=== PATIENT | female | born 1985 | race Caucasian/White ===

== ENCOUNTER 2016-11-07 06:51 | Day surgery (SDC) | payer MEDICAID ==
[~2016-11-07 06:51] MED LIST: Dextrose 5%-0.45% NaCl 1,000 ML IV SCH; Midazolam 1 MG/ML 2 ML SDV ONE; Sodium Chloride 0.9% 10 ML Syringe FLUSH PRN; fentaNYL 100 MCG/2 ML SDV ONE
[2016-11-07] MEDS ORDERED: fentaNYL 100 MCG/2 ML SDV IV ONE ×2 (07:50→17:05)
[2016-11-07] MEDS ORDERED: Midazolam 1 MG/ML 2 ML SDV IV ONE ×3 (07:51→17:05)
--- NOTE | 2016-11-07 08:26 | OR ---
DATE: 11/07/2016 PROCEDURE: Esophagogastroduodenoscopy and multiple pinch biopsies. INSTRUMENT USED: GIF-H180 Olympus video panendoscope. PREMEDICATIONS: No oral topical anesthesia used. Fentanyl 100 mcg intravenous, Versed 2 mg intravenous. Nasal O2 cannula. The procedure was done under pulse oximetry, BP recording, and monitoring engineer. INDICATION: The patient with longstanding heartburn, upper abdominal pain, unexplained and not responsive to medical measures. Esophagogastroduodenoscopy is performed for detection of any active erosive lesions, Greene esophagus and/or malignancy also under consideration, H. pylori status to be determined, endoscopic hemostasis therapy if needed. DESCRIPTION OF PROCEDURE: The scope was passed with ease. Adequate visualization of the esophagus was made from proximal to distal areas. No upper esophageal lesions identified. No distal esophageal stricture. No uphill or downhill esophageal varices. No Kalina-Bang tear. No evidence of erosive esophagitis by Bulloch criteria. No esophageal polyp or tumor mass identified. Z-line was seen at around 40 cm distal to the oral verge, configuration consistent with grade 1 by ZAP classification. No esophageal polyp or tumor mass identified. No proximal gastric varices noted. Gastric fundus examination by retroflexion showed no polypoid lesions. No gastric ulcer, malignant mass, or vascular ectasia identified. Duodenal bulb showed no ulcer. Visualized second part of the duodenum was unremarkable. Multiple pinch biopsies were taken from the gastric antrum and proximal body and sent for PyloriTek test for H. pylori, and if negative in an hour, tissue is to be sent for histopathology. No bleeding was noted from any of the visualized areas at the completion of the examination. Photographs were taken of the duodenal bulb, gastric antrum, fundus, and distal esophagus. IMPRESSION: Normal study. The patient tolerated the procedure well. [facility] /[id number]
[2016-11-07 10:46] VITALS: BP 98/80
== END 2016-11-07 10:30 | disposition home or self-care (01) ==
LOC: DL.ENDO 06:51
PROVIDERS: ATTEND Internal Medicine Gastroenterology
DX: K31.9 Disease of stomach and duodenum, unspecified (principal); E66.9 Obesity, unspecified; F41.1 Generalized anxiety disorder; Z88.8 Allergy status to other drugs, medicaments and biological substances; Z91.09 Other allergy status, other than to drugs and biological substances; F32.9 Major depressive disorder, single episode, unspecified; K21.9 Gastro-esophageal reflux disease without esophagitis; Z98.890 Other specified postprocedural states; Z79.899 Other long term (current) drug therapy
CPT/HCPCS: 43239; 87077; J2250; J3010; J7042

== ENCOUNTER 2016-11-09 06:21 | Day surgery (SDC) | payer MEDICAID ==
[2016-11-09] MEDS ORDERED: fentaNYL 100 MCG/2 ML SDV IV ONE ×5 (07:11→16:43)
[2016-11-09] MEDS ORDERED: Midazolam 1 MG/ML 2 ML SDV IV ONE ×7 (07:12→16:43)
[2016-11-09 09:36] VITALS: BP 101/65
--- NOTE | 2016-11-09 11:11 | OR ---
DATE: 11/09/2016 PROCEDURE: Total colonoscopy. INSTRUMENT USED: CF-H180AL Olympus video colonoscope. PREMEDICATIONS: Fentanyl 150 mcg intravenous, Versed 4 mg intravenous. Nasal O2 cannula. The procedure was done under pulse oximetry, BP recording, and registered nurse cardiac. INDICATION: The patient with rectal bleeding and abdominal pain, unexplained and not responsive to medical measures. Colonoscopic examination is done for detection of any polypoid lesions and removal, endoscopic hemostasis therapy if needed. DESCRIPTION OF PROCEDURE: Initial rectal exam showed external hemorrhoidal tags. Rigid anoscopy was unremarkable. The colonoscope was passed with ease up to the ileocecal area, photographs were taken of the normal-appearing cecum, identified by landmarks of appendiceal orifice and double-bulged ileocecal folds. No bleeding was noted from any of the visualized areas at the commencement of the examination. Few diverticula openings were noted. No stricture. No vascular ectasia. No large isolated ulcerations seen. No evidence of diffuse inflammatory bowel disease in the form of friability, contact bleeding, or ulcerations. No polyp or tumor mass identified. Probing the proximal sides of folds and flexures, using adequate distention and clearing up the stool material, withdrawal of the scope was made, cecum to rectum time over 6 minutes. No bleeding was noted from any of the visualized areas at the completion of examination. IMPRESSION: 1. External hemorrhoids. 2. Diverticulosis. The patient tolerated the procedure well. [facility] /[id number]
== END 2016-11-09 09:37 | disposition home or self-care (01) ==
LOC: DL.ENDO 06:21
PROVIDERS: ATTEND Internal Medicine Gastroenterology
DX: K57.30 Diverticulosis of large intestine without perforation or abscess without bleeding (principal); K64.4 Residual hemorrhoidal skin tags; Z88.8 Allergy status to other drugs, medicaments and biological substances; Z91.09 Other allergy status, other than to drugs and biological substances; E66.9 Obesity, unspecified; F41.1 Generalized anxiety disorder; F32.9 Major depressive disorder, single episode, unspecified; Z79.899 Other long term (current) drug therapy
CPT/HCPCS: 45378; J2250; J3010; J7042

== ENCOUNTER 2016-11-26 15:21 | Emergency (ER) | payer MEDICAID ==
[2016-11-26 15:37] VITALS: BP 125/82
--- NOTE | 2016-11-29 10:51 | EKG ---
11/26/2016- KAILA OLIVEIRA - EKG per my reading shows sinus rhythm at the rate of 77, inverted T wave in inferior leads. [facility] /[id number]
== END 2016-11-26 16:00 | disposition left against medical advice (07) ==
LOC: DL.ED 15:21
DX: Z53.21 Procedure and treatment not carried out due to patient leaving prior to being seen by health care provider (principal)
CPT/HCPCS: 93005; 99284

== ENCOUNTER 2017-04-28 11:50 | Emergency (ER) | payer MEDICAID ==
[2017-04-28 11:56] VITALS: BP 123/77
--- NOTE | 2017-04-28 12:12 | EDM.PDOC ---
ED HPI GENERAL MEDICAL PROBLEM - General Chief Complaint: General Stated Complaint: [id number] CHEST PAIN SOB Time Seen by Provider: 04/28/17 12:07 Source of Information: Reports: Patient History Limitations: Reports: No Limitations - History of Present Illness INITIAL COMMENTS - FREE TEXT/NARRATIVE: 31 yo white female c/o 2 days of head feeling funny and anxiety. PMHx. Depression and Anxiety. Pt. states she is and her smoke outside and she does not have sex Onset Date: 04/26/17 Onset Time: 12:00 Duration: Day(s): Location: Reports: Head Quality: Reports: Pressure Severity: Moderate Improves with: Reports: None Worsens with: Reports: None Associated Symptoms: Reports: Headaches Middle Headache Pain Score (Numeric/FACES): 3 - Related Data Allergies Allergy/AdvReac Type Severity Reaction Status Date / Time metal Allergy Rash Uncoded 04/28/17 11:53 Home Meds: Home Meds Venlafaxine HCl [Venlafaxine ER] 2 tab PO DAILY 11/03/16 [History] Past Medical History - Past Health History Medical/Surgical History: Denies Medical/Surgical History HEENT History: Reports: None Cardiovascular History: Reports: None Respiratory History: Reports: Asthma, Other (See Below) Other Respiratory History: States she is being tested for sleep apnea Gastrointestinal History: Reports: None Genitourinary History: Reports: None APPLIED RESEARCHER History: Reports: Musculoskeletal History: Reports: None Neurological History: Reports: None Psychiatric History: Reports: Anxiety, Depression, Panic Attack Endocrine/Metabolic History: Reports: Obesity/BMI 30+ Hematologic History: Reports: None Immunologic History: Reports: None Oncologic (Cancer) History: Reports: None Dermatologic History: Reports: Eczema - Infectious Disease History Infectious Disease History: Reports: Chicken Pox - Past Surgical History Head Surgeries/Procedures: Reports: None HEENT Surgical History: Reports: None Cardiovascular Surgical History: Reports: None Respiratory Surgical History: Reports: None GI Surgical History: Reports: Colonoscopy, EGD Female Surgical History: Reports: Section Musculoskeletal Surgical History: Reports: None Social & Family History - Family History Family Medical History: Noncontributory - Tobacco Use Smoking Status *Q: Never Smoker Years of Tobacco use: 9 Used Tobacco, but Quit: No Month Tobacco Last Used: aug 2012 Second Hand Smoke Exposure: No - Caffeine Use Caffeine Use: Reports: None Other Caffeine Use: 1 weekly - Alcohol Use Days Per Week of Alcohol Use: 0 - Recreational Drug Use Recreational Drug Use: No Drug Use in Last 12 Months: No - Living Situation & Occupation Living situation: Reports: , with Family Occupation: Employed ED ROS GENERAL - Review of Systems Review Of Systems: See Below Constitutional: Reports: No Symptoms HEENT: Reports: Sinus Problem Respiratory: Reports: No Symptoms Cardiovascular: Reports: No Symptoms Endocrine: Reports: No Symptoms GI/Abdominal: Reports: No Symptoms : Reports: No Symptoms Musculoskeletal: Reports: No Symptoms Skin: Reports: No Symptoms Neurological: Reports: Dizziness Psychiatric: Reports: No Symptoms Hematologic/Lymphatic: Reports: No Symptoms Immunologic: Reports: No Symptoms ED EXAM, GENERAL - Physical Exam Exam: See Below Exam Limited By: No Limitations General Appearance: Alert, WD/WN, No Apparent Distress Eye Exam: Bilateral Eye: PERRL Ears: Normal External Exam Ear Exam: Bilateral Ear: TM Bulging Nose: Normal Inspection, Normal Mucosa Throat/Mouth: Normal Inspection Head: Atraumatic, Normocephalic Neck: Normal Inspection, Supple, Non-Tender Respiratory/Chest: No Respiratory Distress, Lungs Clear, Normal Breath Sounds Cardiovascular: Normal Peripheral Pulses, Regular Rate, Rhythm Back Exam: Normal Inspection Extremities: Normal Inspection, Normal Range of Motion Neurological: Alert, Oriented, CN II-XII Intact, Normal Cognition Psychiatric: Normal Affect Skin Exam: Warm, Dry, Intact Lymphatic: No Adenopathy Course - Vital Signs Last Recorded V/S: Last Vital Signs Temp 35.3 C 04/28/17 11:54 Pulse 83 04/28/17 11:54 Resp 16 04/28/17 11:54 BP 123/77 04/28/17 11:54 Pulse Ox 100 04/28/17 11:54 Departure - Departure Time of Disposition: 12:14 Disposition: Home, Self-Care 01 Condition: Good Clinical Impression: Congestion of paranasal sinus - Discharge Information Additional Instructions: Increase intake of Water / Juice Take the medication as prescibed MEDROL 4mg take as directed and complete # 1 TRY A VICS VAPORIZER IN BEDROOM AT NIGHT TO LOOSEN MUCUS F/U w/ PCP
== END 2017-04-28 12:22 | disposition home or self-care (01) ==
LOC: DL.ED 11:50
DX: R09.81 Nasal congestion (principal); E66.9 Obesity, unspecified; J45.909 Unspecified asthma, uncomplicated; Z79.899 Other long term (current) drug therapy; Z91.09 Other allergy status, other than to drugs and biological substances
CPT/HCPCS: 99283

== ENCOUNTER 2018-09-20 13:39 | Emergency (ER) | payer SELFPAY ==
[2018-09-20 13:47] VITALS: BP 127/85
--- NOTE | 2018-09-20 13:59 | EDM.PDOC ---
ED HPI GENERAL MEDICAL PROBLEM - General Chief Complaint: Chest Pain Stated Complaint: CHEST PAIN, BREATHING PROBLEMS,INFLUENZA? Time Seen by Provider: 09/20/18 13:59 Source of Information: Reports: Patient, RN, RN Notes Reviewed History Limitations: Reports: No Limitations - History of Present Illness INITIAL COMMENTS - FREE TEXT/NARRATIVE: Patient to the ER with c/o body aches, chills, sore throat. She states her son was diagnosed with influenza. Patient states she has not been able to take Tylenol or ibuprofen as her throat hurts. Patient denies N/V/D. Patient states her chest hurts. Onset: Today Duration: Constant, Getting Worse Location: Reports: Chest, Generalized Quality: Reports: Ache Severity: Moderate Improves with: Reports: None Worsens with: Reports: None Middle Chest Pain Score (Numeric/FACES): 8 - Related Data Allergies Allergy/AdvReac Type Severity Reaction Status Date / Time metal Allergy Rash Uncoded 09/20/18 13:47 Home Meds: Home Meds Venlafaxine HCl [Venlafaxine ER] 75 mg PO DAILY 11/03/16 [History] Ranitidine [Zantac] 150 mg PO DAILY PRN 05/28/17 [History] Venlafaxine HCl [Venlafaxine ER] 150 mg PO DAILY 05/28/17 [History] Amoxicillin 500 mg PO QID 09/20/18 [History] Past Medical History - Past Health History Medical/Surgical History: Denies Medical/Surgical History HEENT History: Reports: None Cardiovascular History: Reports: None Respiratory History: Reports: Asthma, Other (See Below) Other Respiratory History: States she is being tested for sleep apnea Gastrointestinal History: Reports: None Genitourinary History: Reports: None SITE MEDICAL DIRECTOR History: Reports: Musculoskeletal History: Reports: None Neurological History: Reports: None Psychiatric History: Reports: Anxiety, Depression, Panic Attack Endocrine/Metabolic History: Reports: Obesity/BMI 30+ Hematologic History: Reports: None Immunologic History: Reports: None Oncologic (Cancer) History: Reports: None Dermatologic History: Reports: Eczema - Infectious Disease History Infectious Disease History: Reports: Chicken Pox - Past Surgical History Head Surgeries/Procedures: Reports: None HEENT Surgical History: Reports: None Cardiovascular Surgical History: Reports: None Respiratory Surgical History: Reports: None GI Surgical History: Reports: Colonoscopy, EGD Female Surgical History: Reports: Section Musculoskeletal Surgical History: Reports: None Social & Family History - Family History Family Medical History: Noncontributory - Tobacco Use Smoking Status *Q: Never Smoker Second Hand Smoke Exposure: No - Caffeine Use Caffeine Use: Reports: None Other Caffeine Use: 1 weekly - Recreational Drug Use Recreational Drug Use: No - Living Situation & Occupation Living situation: Reports: , with Family Occupation: Employed ED ROS GENERAL - Review of Systems Review Of Systems: ROS reveals no pertinent complaints other than HPI. ED EXAM, GENERAL - Physical Exam Exam: See Below Exam Limited By: No Limitations General Appearance: Alert, WD/WN, Moderate Distress Eye Exam: Bilateral Eye: EOMI, Normal Inspection Ears: Normal External Exam, Normal Canal, Hearing Grossly Normal, Normal TMs Nose: Normal Inspection Throat/Mouth: Normal Inspection, Normal Lips, Normal Teeth, Normal Gums, Normal Oropharynx, Normal Voice, No Airway Compromise Head: Atraumatic, Normocephalic Neck: Normal Inspection, Supple, Non-Tender, Full Range of Motion Respiratory/Chest: No Respiratory Distress, Lungs Clear, Normal Breath Sounds, No Accessory Muscle Use, Other (chest tenderness) Cardiovascular: Normal Peripheral Pulses, Regular Rate, Rhythm, No Edema, No Gallop, No JVD, No Murmur, No Rub Peripheral Pulses: 2+: Radial (L), Radial (R) GI/Abdominal: Normal Bowel Sounds, Soft, Non-Tender (Female) Exam: Deferred Rectal (Female) Exam: Deferred Back Exam: Normal Inspection, Full Range of Motion Extremities: Normal Inspection, Normal Range of Motion, Non-Tender, No Pedal Edema, Normal Capillary Refill Neurological: Alert, Oriented, CN II-XII Intact, Normal Cognition, Normal Gait, Normal Reflexes, No Motor/Sensory Deficits Psychiatric: Flat Affect Skin Exam: Warm, Dry, Intact, Normal Color, No Rash Lymphatic: No Adenopathy Course - Vital Signs Last Recorded V/S: Last Vital Signs Temp 100.8 F H 09/20/18 14:21 Pulse 114 H 09/20/18 13:46 Resp 20 09/20/18 13:46 BP 127/85 09/20/18 13:46 Pulse Ox 100 09/20/18 13:46 - Orders/Labs/Meds Orders: Active Orders 24 hr Category Date Time Status CULTURE STREP A CONFIRMATION [] Stat Lab 09/20/18 13:45 Results STREP SCRN A RAPID W CULT CONF [RM] Stat Lab 09/20/18 13:45 Results Labs: Rapid Strep: Negative Influenza A: Positive Influenza B: Negative Meds: Medications Discontinued Medications Generic Name Dose Route Start Last Admin Trade Name Jase PRN Reason Stop Dose Admin Ibuprofen 800 mg 09/20/18 14:15 09/20/18 14:21 Motrin PO 09/20/18 14:16 800 mg ONETIME ONE Administration Departure - Departure Time of Disposition: 14:21 Disposition: Home, Self-Care 01 Condition: Fair Clinical Impression: Influenza A - Discharge Information *PRESCRIPTION DRUG MONITORING PROGRAM REVIEWED*: No *COPY OF PRESCRIPTION DRUG MONITORING REPORT IN PATIENT [place]: No Instructions: Influenza, Adult, [id number] Forms: ED Department Discharge Additional Instructions: Drink plenty of water and/or gatorade Rest Take Tylenol and/or Ibuprofen as directed for pain/fever - My Orders Last 24 Hours: My Active Orders 09/20/18 13:45 CULTURE STREP A CONFIRMATION [RM] Stat STREP SCRN A RAPID W CULT CONF [RM] Stat - Assessment/Plan Last 24 Hours: My Active Orders 09/20/18 13:45 CULTURE STREP A CONFIRMATION [RM] Stat STREP SCRN A RAPID W CULT CONF [RM] Stat
[2018-09-20] MEDS ORDERED: Ibuprofen 800 MG Tab PO ONE (14:15)
== END 2018-09-20 14:31 | disposition home or self-care (01) ==
LOC: DL.ED 13:39
DX: J10.1 Influenza due to other identified influenza virus with other respiratory manifestations (principal); J45.909 Unspecified asthma, uncomplicated; F41.9 Anxiety disorder, unspecified; F32.9 Major depressive disorder, single episode, unspecified; Z91.048 Other nonmedicinal substance allergy status; Z79.899 Other long term (current) drug therapy
CPT/HCPCS: 87081; 87430; 87804; 99283; A9270

== ENCOUNTER 2021-01-11 16:43 | Emergency (ER) | payer BC ==
[2021-01-11 16:57] VITALS: BP 113/68; PULSE 87
--- NOTE | 2021-01-11 17:20 | EDM.PDOC ---
ED HPI GENERAL MEDICAL PROBLEM - General Chief Complaint: Chest Pain Stated Complaint: ISSUES BREATHING Time Seen by Provider: 01/11/21 17:19 Source of Information: Reports: Patient, RN, RN Notes Reviewed History Limitations: Reports: No Limitations - History of Present Illness INITIAL COMMENTS - FREE TEXT/NARRATIVE: Kaila is a 35 y/o female who presents to the ED via personal vehicle with complaints of cough, sore throat, shortness of breath, and chest pain. The patient reports her cough and sore throat began two days and have maintained in severity, however this morning she developed shortness of breath and chest pain. She states the chest pain is constant but worsens with deeps breaths. Additionally, she notes sinus congestion, runny nose, and fever yesterday. She has taken no medications for her symptoms, and notes her fever broke spontaneously and has not returned. She denies headache, vision changes, palpitations, nausea, or vomiting. She denies tobacco, alcohol, or recreational drug use. Bilateral Chest Pain Score (Numeric/FACES): 6 - Related Data Allergies Allergy/AdvReac Type Severity Reaction Status Date / Time metal Allergy Rash Uncoded 01/11/21 16:57 Home Meds: Home Meds Venlafaxine HCl [Venlafaxine ER] 150 mg PO DAILY 05/28/17 [History] Venlafaxine [Effexor XR] 75 mg PO DAILY 01/11/21 [History] Past Medical History - Past Health History Medical/Surgical History: Denies Medical/Surgical History HEENT History: Reports: None Cardiovascular History: Reports: None Respiratory History: Reports: Asthma, Other (See Below) Other Respiratory History: States she is being tested for sleep apnea Gastrointestinal History: Reports: None Genitourinary History: Reports: None ACTIVITIES AIDE History: Reports: Musculoskeletal History: Reports: None Neurological History: Reports: None Psychiatric History: Reports: Anxiety, Depression, Panic Attack Endocrine/Metabolic History: Reports: Obesity/BMI 30+ Hematologic History: Reports: None Immunologic History: Reports: None Oncologic (Cancer) History: Reports: None Dermatologic History: Reports: Eczema - Infectious Disease History Infectious Disease History: Reports: Chicken Pox - Past Surgical History Head Surgeries/Procedures: Reports: None HEENT Surgical History: Reports: None Cardiovascular Surgical History: Reports: None Respiratory Surgical History: Reports: None GI Surgical History: Reports: Colonoscopy, EGD Female Surgical History: Reports: Section Musculoskeletal Surgical History: Reports: None Social & Family History - Family History Family Medical History: No Pertinent Family History - Tobacco Use Tobacco Use Status *Q: Unknown Ever Used Tobacco - Caffeine Use Caffeine Use: Reports: Energy Drinks Other Caffeine Use: 1 weekly - Recreational Drug Use Recreational Drug Use: No - Living Situation & Occupation Living situation: Reports: , with Family Occupation: Employed ED ROS GENERAL - Review of Systems Review Of Systems: Comprehensive ROS is negative, except as noted in HPI. ED EXAM, GENERAL - Physical Exam Exam: See Below Exam Limited By: No Limitations General Appearance: Alert, No Apparent Distress Eye Exam: Bilateral Eye: EOMI, Normal Inspection, PERRL Ears: Normal External Exam, Normal Canal, Hearing Grossly Normal, Normal TMs Ear Exam: Bilateral Ear: Auricle Normal, Canal Normal, TM normal Nose: Normal Mucosa, No Blood, Nasal Drainage, Clear Rhinorrhea. No: Nasal Tenderness, Nasal Deformity, Nasal Swelling Throat/Mouth: Normal Inspection, Normal Lips, Normal Teeth, Normal Gums, Normal Oropharynx, Normal Voice, No Airway Compromise. No: Inflammation Head: Atraumatic Neck: Normal Inspection, Supple, Non-Tender, Full Range of Motion. No: Lymphadenopathy (L), Lymphadenopathy (R) Respiratory/Chest: No Respiratory Distress, Normal Breath Sounds, No Accessory Muscle Use, Rales (To left mid lung). No: Chest Non-Tender Cardiovascular: Normal Peripheral Pulses, Regular Rate, Rhythm, No Edema, No Gallop, No JVD, No Murmur, No Rub Peripheral Pulses: 2+: Radial (L), Radial (R) GI/Abdominal: Normal Bowel Sounds, Soft, Non-Tender, No Distention, No Abnormal Bruit, No Mass, Pelvis Stable (Female) Exam: Deferred Rectal (Female) Exam: Deferred Back Exam: Normal Inspection, Full Range of Motion Extremities: Normal Inspection, Normal Range of Motion, Non-Tender, Normal Capillary Refill, No Pedal Edema Neurological: Alert, Oriented, CN II-XII Intact, Normal Cognition, Normal Gait, No Motor/Sensory Deficits Psychiatric: Normal Mood, Flat Affect Skin Exam: Warm, Dry, Intact, Normal Color, No Rash. No: Cyanosis, Jaundice, Mottled, Pallor #1 Interpretation EKG Date: 01/11/21 Time: 17:02 Rhythm: NSR Rate (Beats/Min): 84 [place]: Normal P-Wave: Present QRS: Normal ST-T: Normal QT: Normal UT/PQ Interval: 0.132 Comparison: No Change EKG Interpretation Comments: NSR; No evidence of acute myocardial ischemia Course - Vital Signs Last Recorded V/S: Last Vital Signs Temp 97.7 F 01/11/21 16:53 Pulse 87 01/11/21 16:53 Resp 14 01/11/21 16:53 BP 113/68 01/11/21 16:53 Pulse Ox 100 01/11/21 16:53 - Orders/Labs/Meds Labs: Laboratory Tests 01/11/21 01/11/21 Range/Units 17:30 17:30 WBC 7.6 (5.0-10.0) 10^3/uL RBC 4.50 (4.2-5.4) 10^6/uL Hgb 12.5 (12.0-16.0) g/dL Hct 38.9 (37.0-47.0) % MCV 86.4 (80-100) fL MCH 27.8 (27.0-34.0) pg MCHC 32.1 L (33.0-35.0) g/dL Plt Count 278 (150-450) 10^3/uL Neut % (Auto) 55.0 (42.2-75.2) % Lymph % (Auto) 31.3 (20.5-50.1) % [place] % (Auto) 11.2 H (2-8) % Eos % (Auto) 2.2 (1.0-3.0) % Baso % (Auto) 0.3 (0.0-1.0) % Sodium 141 (136-145) mmol/L Potassium 3.6 (3.5-5.1) mmol/L Chloride 105 (98-107) mmol/L Carbon Dioxide 24 (21-32) mmol/L Anion Gap 15.6 H (7-13) mEq/L BUN 11 (7-18) mg/dL Creatinine 0.77 (0.55-1.02) mg/dL Est Cr Clr Drug Dosing 111.32 mL/min Estimated GFR (MDRD) > 60 Glucose 96 (70-99) mg/dL Calcium 8.4 L (8.5-10.1) mg/dL Troponin I High Sens 4 (<=51) pg/mL Meds: Medications Discontinued Medications Generic Name Dose Route Start Last Admin Trade Name Porterq PRN Reason Stop Dose Admin Benzocaine/Menthol 1 lozenge 01/11/21 17:58 01/11/21 18:04 Benzocaine/Cetylpyridinium/Menthol Lozenge MUCMEM 01/11/21 17:59 1 lozenge NOW ONE Administration Ibuprofen 400 mg 01/11/21 17:52 01/11/21 18:01 Ibuprofen 400 Mg Tab PO 01/11/21 17:53 400 mg ONETIME ONE Administration - Radiology Interpretation Free Text/Narrative:: [facility] Final Radiology Report Call: [phone] assistance Online chat: [email or web address] Name: KAILA OLIVEIRA Age: 35Years F Date: 01/11/2021 SSN: -- : [id number] Study: CR CHEST 2V Requesting Physician: Marycarmen Alvarez Images: 2 Addl Studies: Provided Clinical History: Shortness of breath; Chest pain. Rales left, mid chest Contrast: Contrast Medium: Contrast Amount: Contrast Method: CONFIDENTIALITY STATEMENT This report is intended only for use by the referring physician, and only in accordance with law. If you received this in error, call [phone]. Page 1 of 1 PROCEDURE INFORMATION: Exam: XR Chest Exam date and time: 01/11/2021 5:33 PM Age: 35 years old Clinical indication: Pain; Shortness of breath; On breathing; Additional info: Shortness of breath; Chest pain. Rales left, mid chest TECHNIQUE: Imaging protocol: XR of the chest. Views: 2 views. COMPARISON: CR Chest 2V 11/25/2016 1:45 PM FINDINGS: Lungs: Lungs are clear bilaterally. Pleural spaces: No pleural effusion. No pneumothorax. Heart/Mediastinum: The cardiac silhouette and mediastinal contours are unr emarkable. Bones/joints: Stable mild scoliosis in the visualized spine. IMPRESSION: 1. No acute cardiopulmonary process. 2. Incidental/nonacute findings are listed in the report. Thank you for allowing us to participate in the care of your patient. Dictated and Authenticated by: Jennie Sunshine MD 01/11/2021 5:56 PM Central Time ([place] & [place]) - Re-Assessments/Exams Free Text/Narrative Re-Assessment/Exam: 01/11/21 Findings of examination, lab work, and imaging reviewed with patient. Will treat cough and sore throat with Tessalon and Cepacol, respectively. Discussed supportive cares for for URI. Red flag signs and symptoms which would warrant reevaluation reviewed. Patient verbalized understanding and agreement with the plan of care. Departure - Departure Time of Disposition: 18:16 Disposition: Home, Self-Care 01 Condition: Good Clinical Impression: Upper respiratory infection, acute, Atypical chest pain - Discharge Information *PRESCRIPTION DRUG MONITORING PROGRAM REVIEWED*: Not Applicable *COPY OF PRESCRIPTION DRUG MONITORING REPORT IN PATIENT [place]SEM[place]: Not Applicable Instructions: Viral Respiratory Infection, Oidv-Tr-Iaqu Forms: ED Department Discharge Additional Instructions: Rx: Tessalon Perles Rx: Cepacol Lozenges 1.) You may take ibuprofen (Advil/Motrin) 400mg every six hours, as pain to chest persists. You may also take acetaminophen (Tylenol) 650mg every six hours, as pain persists. You may stagger these medications so you are receiving a dose every three hours. 2.) You may try warm salt-water gargles for sore throat. 3.) Drink plenty of water to keep hydrated and keep your secretions thin. 4.) Follow up with primary care provider, or return to the emergency department, with persistent or worsening symptoms despite medications. Sepsis Event Note (ED) - Evaluation Sepsis Screening Result: No Definite Risk
[2021-01-11] MEDS ORDERED: Ibuprofen 400 MG Tab PO ONE (17:52)
[2021-01-11 17:56] LABS: ANION GAP 15.6 mEq/L (7-13); CHLORIDE,CL 105 mmol/L (98-107); SODIUM,NA 141 mmol/L (136-145)
--- NOTE | 2021-01-11 17:56 | CR ---
PROCEDURE INFORMATION: Exam: XR Chest Exam date and time: 01/11/2021 5:33 PM Age: 35 years old Clinical indication: Pain; Shortness of breath; On breathing; Additional info: Shortness of breath; Chest pain. Rales left, mid chest TECHNIQUE: Imaging protocol: XR of the chest. Views: 2 views. COMPARISON: CR Chest 2V 11/25/2016 1:45 PM FINDINGS: Lungs: Lungs are clear bilaterally. Pleural spaces: No pleural effusion. No pneumothorax. Heart/Mediastinum: The cardiac silhouette and mediastinal contours are unremarkable. Bones/joints: Stable mild scoliosis in the visualized spine. IMPRESSION: 1. No acute cardiopulmonary process. 2. Incidental/nonacute findings are listed in the report.
[2021-01-11] MEDS ORDERED: Benzocaine/Cetylpyridinium/Menthol Lozenge MUCMEM ONE (17:58)
== END 2021-01-11 18:37 | disposition home or self-care (01) ==
LOC: DL.ED 16:43
DX: R07.89 Other chest pain (principal); J06.9 Acute upper respiratory infection, unspecified; E66.9 Obesity, unspecified; Z68.36 Body mass index [BMI] 36.0-36.9, adult; Z91.048 Other nonmedicinal substance allergy status
CPT/HCPCS: 36415; 71046; 80048; 84484; 85025; 93005; 93010; 99283; 99285-25; A9270-GY

== ENCOUNTER 2022-06-26 10:59 | Emergency (ER) | payer BC ==
[2022-06-26 11:19] VITALS: BP 137/90; PULSE 114
[2022-06-26] MEDS ORDERED: Pantoprazole 40 MG Vial IVPUSH ONE (11:28)
[2022-06-26] MEDS ORDERED: Ondansetron 4 MG/2 ML SDV IVPUSH ONE (11:29)
[2022-06-26 12:52] LABS: CORONAVIRUS COVID-19 NAA NEGATIVE (NEGATIVE); RESPIRATORY SYNCYTIAL VIR NAA NEGATIVE (NEGATIVE)
[2022-06-26] MEDS ORDERED: Metoclopramide 10 MG/2 ML SDV IVPUSH ONE (12:55)
== END 2022-06-26 13:42 | disposition home or self-care (01) ==
LOC: DL.ED 10:59
DX: T39.311A Poisoning by propionic acid derivatives, accidental (unintentional), initial encounter (principal); J10.1 Influenza due to other identified influenza virus with other respiratory manifestations; R09.1 Pleurisy; R11.2 Nausea with vomiting, unspecified; J45.909 Unspecified asthma, uncomplicated; R00.0 Tachycardia, unspecified; E66.9 Obesity, unspecified; Z91.048 Other nonmedicinal substance allergy status; Z20.822 Contact with and (suspected) exposure to COVID-19
CPT/HCPCS: 0241U; 36415; 71045; 80053; 82150; 83605; 83690; 84484; 85025; 86140; 87081; 87430; 93005; 93010; 96374; 96375; 99284; 99285; C9113; J2405; J2765

== ENCOUNTER 2023-07-11 19:00 | Emergency (ER) | payer BC ==
[2023-07-11] MEDS ORDERED: Ondansetron 4 MG Tab.DIS PO ONE (19:01)
[2023-07-11 19:11] VITALS: BP 127/94; PULSE 81
[2023-07-11] MEDS ORDERED: Ondansetron 4 MG/2 ML SDV IVPUSH ONE ×2 (19:22→21:04)
[2023-07-11] MEDS ORDERED: Sodium Chloride 0.9% 10 ML Syringe FLUSH PRN (19:22)
[2023-07-11] MEDS ORDERED: Sodium Chloride 0.9% 1,000 ML IV ONE (19:22)
[2023-07-11 19:38] LABS: EOSINOPHILS PERCENT AUTO 1.2 % (1.0-3.0); HEMATOCRIT 37.4 % (37.0-47.0); HEMOGLOBIN 11.9 g/dL (12.0-16.0); LYMPHOCYTES PERCENT AUTO 18.1 % (20.5-50.1); MEAN CORPUSCULAR HEMOGLOBIN 26.2 pg (27.0-34.0); MEAN CORPUSCULAR HGB CONC 31.8 g/dL (33.0-35.0); MEAN CORPUSCULAR VOLUME 82.4 fL (80-100); MONOCYTES PERCENT AUTO 6.7 % (2-8); PLATELET COUNT,PLT 314 10^3/uL (150-450); RED BLOOD CELL COUNT 4.54 10^6/uL (4.2-5.4); WHITE BLOOD CELL COUNT,WBC 12.9 10^3/uL (5.0-10.0)
[2023-07-11 19:57] LABS: A/G RATIO 0.74; ALBUMIN 2.9 g/dL (3.4-5.0); ANION GAP 14.5 mEq/L (7-13); BILIRUBIN TOTAL 0.5 mg/dL (0.2-1.0); BUN/CREATININE RATIO 15.8 (No establ ref range); CALCIUM 8.6 mg/dL (8.5-10.1); CREATININE 0.76 mg/dL (0.55-1.02); EST CRCL DRUG DOSING (CG) 106.95 mL/min; POTASSIUM,K 3.5 mmol/L (3.5-5.1); PROTEIN TOTAL,TP 6.8 g/dL (6.4-8.2)
[2023-07-11] MEDS ORDERED: Ketorolac 30 MG/ML SDV IVPUSH ONE (20:24)
[2023-07-11] MEDS ORDERED: Omeprazole 20 MG Cap.CR PO ONE (21:04)
[2023-07-11] MEDS ORDERED: Ondansetron 4 MG Tab.DIS ONE (21:20)
== END 2023-07-11 21:30 | disposition home or self-care (01) ==
LOC: DL.ED 19:00
DX: O21.9 Vomiting of pregnancy, unspecified (principal); G43.909 Migraine, unspecified, not intractable, without status migrainosus; R07.89 Other chest pain; Z91.048 Other nonmedicinal substance allergy status; E66.9 Obesity, unspecified; Z68.36 Body mass index [BMI] 36.0-36.9, adult
CPT/HCPCS: 36415; 80053; 83690; 85025; 93005; 96361; 96374; 96375; 96376; 99285-25; A9270-GY; J1885; J2405; J3490; J7030

== ENCOUNTER 2023-08-08 19:15 | Emergency (ER) | payer BC, MEDICAID ==
[2023-08-08 19:38] VITALS: BP 135/93; PULSE 94
[2023-08-08] MEDS: Sodium Chloride 0.9% 1,000 ML IV SCH ×2 (20:54→21:54)
[2023-08-08] MEDS: Ondansetron 4 MG/2 ML SDV IVPUSH ONE (20:54)
[2023-08-08] MEDS: Sodium Chloride 0.9% 10 ML Syringe FLUSH PRN (20:59)
== END 2023-08-08 22:56 | disposition home or self-care (01) ==
LOC: DL.ED 19:15
DX: O21.0 Mild hyperemesis gravidarum (principal); O99.212 Obesity complicating pregnancy, second trimester; E66.9 Obesity, unspecified; Z3A.15 15 weeks gestation of pregnancy; Z86.16 Personal history of COVID-19; Z79.899 Other long term (current) drug therapy; Z91.048 Other nonmedicinal substance allergy status
CPT/HCPCS: 96361; 96374; 99283; J2405; J7030; J3490

== ENCOUNTER 2023-08-13 12:06 | Emergency (ER) | payer BC, MEDICAID ==
[2023-08-13 12:40] LABS: BASOPHILS PERCENT AUTO 0.1 % (0.0-1.0); EOSINOPHILS PERCENT AUTO 1.3 % (1.0-3.0); HEMATOCRIT 37.4 % (37.0-47.0); LYMPHOCYTES PERCENT AUTO 17.3 % (20.5-50.1); MEAN CORPUSCULAR HEMOGLOBIN 26.8 pg (27.0-34.0); MEAN CORPUSCULAR HGB CONC 32.1 g/dL (33.0-35.0); MEAN CORPUSCULAR VOLUME 83.7 fL (80-100); MONOCYTES PERCENT AUTO 5.6 % (2-8); NEUTROPHILS PERCENT AUTO 75.7 % (42.2-75.2); PLATELET COUNT,PLT 265 10^3/uL (150-450); RED BLOOD CELL COUNT 4.47 10^6/uL (4.2-5.4); WHITE BLOOD CELL COUNT,WBC 10.7 10^3/uL (5.0-10.0)
[2023-08-13] MEDS: Famotidine 20 MG/2 ML SDV IVPUSH ONE (12:56)
[2023-08-13] MEDS: Ondansetron 4 MG/2 ML SDV IVPUSH ONE (12:56)
[2023-08-13] MEDS: Sodium Chloride 0.9% 10 ML Syringe FLUSH PRN (12:57)
[2023-08-13] MEDS: Sodium Chloride 0.9% 1,000 ML IV ONE (12:57)
[2023-08-13 12:59] LABS: ALANINE AMINOTRANSFERASE,ALT 20 U/L (14-59); ALBUMIN 2.7 g/dL (3.4-5.0); ALKALINE PHOSPHATASE 67 U/L (46-116); ANION GAP 13.4 mEq/L (7-13); ASPARTATE AMNIOTRANSFERASE,AST 13 U/L (15-37); BILIRUBIN TOTAL 0.3 mg/dL (0.2-1.0); BLOOD UREA NITROGEN,BUN 9 mg/dL (7-18); CALCIUM 8.9 mg/dL (8.5-10.1); CARBON DIOXIDE,CO2 24 mmol/L (21-32); CHLORIDE,CL 104 mmol/L (98-107); CREATININE 0.69 mg/dL (0.55-1.02); EST CRCL DRUG DOSING (CG) 109.61 mL/min; GLUCOSE RANDOM 107 mg/dL (70-99); MAGNESIUM 1.7 mg/dL (1.8-2.4); POTASSIUM,K 3.4 mmol/L (3.5-5.1); PROTEIN TOTAL,TP 6.7 g/dL (6.4-8.2); SODIUM,NA 138 mmol/L (136-145)
[2023-08-13 13:03] LABS: LACTIC ACID 1.9 mmol/L (0.4-2.0)
[2023-08-13 13:13] LABS: A/G RATIO 0.68; ESTIMATED GFR 115 mL/min (>=60)
[2023-08-13 13:14] LABS: C-REACTIVE PROTEIN < 0.50 ng/dL (<=0.50)
[2023-08-13] MEDS: Potassium Chloride 10 MEQ Tab.ER PO ONE (13:31)
[2023-08-13] MEDS: Magnesium Sulfate/Water 2 GM in Premix Bag 1 BAG IV ONE (13:31)
[2023-08-13 14:52] VITALS: BP 135/79; PULSE 105
== END 2023-08-13 14:52 | disposition home or self-care (01) ==
LOC: DL.ED 12:06
DX: O21.9 Vomiting of pregnancy, unspecified (principal); O99.282 Endocrine, nutritional and metabolic diseases complicating pregnancy, second trimester; Z3A.16 16 weeks gestation of pregnancy; E87.6 Hypokalemia; E83.42 Hypomagnesemia; E66.9 Obesity, unspecified; Z68.39 Body mass index [BMI] 39.0-39.9, adult; Z91.048 Other nonmedicinal substance allergy status; Z86.16 Personal history of COVID-19
CPT/HCPCS: 36415; 76815; 80053; 83605; 83735; 85025; 86140; 93005; 93010; 96361; 96365; 96375; 99284; A9270; J2405; J3475; J3490; J7030

== ENCOUNTER 2023-10-05 12:03 | Emergency (ER) | payer BC, MEDICAID ==
[2023-10-05 13:40] LABS: MEAN CORPUSCULAR HEMOGLOBIN 26.2 pg (27.0-34.0); MEAN CORPUSCULAR HGB CONC 31.3 g/dL (33.0-35.0); PLATELET COUNT,PLT 332 10^3/uL (150-450); RED BLOOD CELL COUNT 3.81 10^6/uL (4.2-5.4); WHITE BLOOD CELL COUNT,WBC 14.7 10^3/uL (5.0-10.0)
[2023-10-05 13:42] LABS: BASOPHILS PERCENT AUTO 0.1 % (0.0-1.0); EOSINOPHILS PERCENT AUTO 1.4 % (1.0-3.0); LYMPHOCYTES PERCENT AUTO 13.4 % (20.5-50.1); MONOCYTES PERCENT AUTO 6.3 % (2-8); NEUTROPHILS PERCENT AUTO 78.8 % (42.2-75.2)
[2023-10-05 14:00] LABS: A/G RATIO 0.62; ALANINE AMINOTRANSFERASE,ALT 12 U/L (14-59); ALBUMIN 2.4 g/dL (3.4-5.0); ALKALINE PHOSPHATASE 75 U/L (46-116); ASPARTATE AMNIOTRANSFERASE,AST 8 U/L (15-37); BILIRUBIN TOTAL 0.2 mg/dL (0.2-1.0); BLOOD UREA NITROGEN,BUN 9 mg/dL (7-18); CALCIUM 8.3 mg/dL (8.5-10.1); CARBON DIOXIDE,CO2 26 mmol/L (21-32); CHLORIDE,CL 106 mmol/L (98-107); EST CRCL DRUG DOSING (CG) 140.17 mL/min; ESTIMATED GFR 119 mL/min (>=60); GLUCOSE RANDOM 76 mg/dL (70-99); LIPASE 21 U/L (16-77); PROTEIN TOTAL,TP 6.3 g/dL (6.4-8.2); SODIUM,NA 140 mmol/L (136-145)
[2023-10-05 14:01] LABS: BAND PERCENT MAN 2 %; EOSINOPHILS PERCENT MAN 2 % (1-3); LYMPHOCYTES PERCENT MAN 16 % (20-50); MONOCYTES PERCENT MAN 2 % (2-8); SEG NEUTROPHILS PERCENT MAN 78 % (42-75)
[2023-10-05 14:07] LABS: CORONAVIRUS COVID-19 NAA NEGATIVE (NEGATIVE); INFLUENZA A NAA NEGATIVE (NEGATIVE); INFLUENZA B NAA NEGATIVE (NEGATIVE); RESPIRATORY SYNCYTIAL VIR NAA NEGATIVE (NEGATIVE)
[2023-10-05 14:23] LABS: APPEARANCE,URINE SLIGHTLY CLOUDY (CLEAR); BILIRUBIN,URINE NEGATIVE (NEGATIVE); COLOR,URINE YELLOW (YELLOW); GLUCOSE,URINE NEGATIVE (NEGATIVE); KETONES,URINE NEGATIVE (NEGATIVE); LEUKOCYTE ESTERASE,URINE NEGATIVE (NEGATIVE); NITRITE,URINE NEGATIVE (NEGATIVE); OCCULT BLOOD,URINE SMALL (NEGATIVE); PH,URINE 6.5 (5.0-9.0); PROTEIN,URINE TRACE (NEGATIVE); UROBILINOGEN,URINE 0.2 mg/dL (0.2-1.0)
[2023-10-05 14:32] LABS: BACTERIA,URINE MANY /HPF (0-FEW/HPF); EPITHELIAL CELLS,URINE MANY /HPF (NOT SEEN); RBC,URINE 0-5 /HPF (0-5); WBC,URINE 0-5 /HPF (0-5/HPF)
[2023-10-05 15:26] VITALS: BP 108/69; PULSE 82
== END 2023-10-05 15:30 | disposition home or self-care (01) ==
LOC: DL.ED 12:03
DX: O99.891 Other specified diseases and conditions complicating pregnancy (principal); R07.89 Other chest pain; R51.9 Headache, unspecified; Z3A.23 23 weeks gestation of pregnancy; Z91.048 Other nonmedicinal substance allergy status; Z86.16 Personal history of COVID-19
CPT/HCPCS: 0241U; 36415; 80053; 81001; 83690; 84484; 85025; 93005; 99285

== ENCOUNTER 2023-10-26 13:15 | Emergency (ER) | payer BC, MEDICAID ==
[2023-10-26 13:33] VITALS: BP 139/73; PULSE 100
[2023-10-26] MEDS: hydrOXYzine HCl 25 MG Tab PO ONE (13:59)
== END 2023-10-26 14:00 | disposition home or self-care (01) ==
LOC: DL.ED 13:15
DX: O99.512 Diseases of the respiratory system complicating pregnancy, second trimester (principal); R06.02 Shortness of breath; Z91.048 Other nonmedicinal substance allergy status; Z3A.26 26 weeks gestation of pregnancy
CPT/HCPCS: 99283; 99284; A9270-GY

== ENCOUNTER 2024-01-11 21:02 | Observation (INO) | payer BC, MEDICAID ==
[2024-01-11 22:18] LABS: APPEARANCE,URINE CLEAR (CLEAR); BILIRUBIN,URINE NEGATIVE (NEGATIVE); COLOR,URINE YELLOW (YELLOW); GLUCOSE,URINE NEGATIVE (NEGATIVE); KETONES,URINE NEGATIVE (NEGATIVE); LEUKOCYTE ESTERASE,URINE NEGATIVE (NEGATIVE); NITRITE,URINE NEGATIVE (NEGATIVE); OCCULT BLOOD,URINE NEGATIVE (NEGATIVE); PH,URINE 6.5 (5.0-9.0); PROTEIN,URINE 30 (NEGATIVE)
[2024-01-11] MEDS: Lactated Ringers 1,000 ML IV ONE (22:23)
[2024-01-11 22:35] LABS: BACTERIA,URINE MANY /HPF (0-FEW/HPF); EPITHELIAL CELLS,URINE MANY /HPF (NOT SEEN); RBC,URINE 0-5 /HPF (0-5)
[2024-01-11] MEDS: Ondansetron 4 MG/2 ML SDV IVPUSH ONE (23:00)
[2024-01-12] MEDS: hydrOXYzine HCl 25 MG Tab PO ONE (02:30)
[2024-01-12] MEDS: Lactated Ringers 1,000 ML IV SCH (02:30)
[2024-01-12 06:01] VITALS: BP 124/62; PULSE 89
== END 2024-01-12 08:30 | disposition home or self-care (01) ==
LOC: DL.OBCHECK 21:02 → DL.OB 01-12 02:24
PROVIDERS: ADMIT Student in an Organized Health Care Education/Training Program; ATTEND Student in an Organized Health Care Education/Training Program
DX: O23.593 Infection of other part of genital tract in pregnancy, third trimester (principal); Z3A.37 37 weeks gestation of pregnancy
CPT/HCPCS: 76815; 81001; 84112; 87210; 96360; 96361; A9270-GY; G0378; J2405; J7120

== ENCOUNTER 2024-01-18 19:59 | Inpatient (IN) | payer BC, MEDICAID ==
[2024-01-18] MEDS: Lactated Ringers 1,000 ML IV SCH ×2 (20:32→22:32)
[2024-01-18 20:36] LABS: HEMATOCRIT 30.5 % (37.0-47.0); HEMOGLOBIN 8.8 g/dL (12.0-16.0); MEAN CORPUSCULAR HEMOGLOBIN 22.3 pg (27.0-34.0); MEAN CORPUSCULAR HGB CONC 28.9 g/dL (33.0-35.0); MEAN CORPUSCULAR VOLUME 77.2 fL (80-100); RED BLOOD CELL COUNT 3.95 10^6/uL (4.2-5.4); WHITE BLOOD CELL COUNT,WBC 11.5 10^3/uL (5.0-10.0)
[2024-01-18 20:37] LABS: APPEARANCE,URINE CLOUDY (CLEAR); BILIRUBIN,URINE NEGATIVE (NEGATIVE); COLOR,URINE YELLOW (YELLOW); GLUCOSE,URINE NEGATIVE (NEGATIVE); KETONES,URINE NEGATIVE (NEGATIVE); LEUKOCYTE ESTERASE,URINE NEGATIVE (NEGATIVE); NITRITE,URINE NEGATIVE (NEGATIVE); OCCULT BLOOD,URINE TRACE-INTACT (NEGATIVE); PH,URINE 6.5 (5.0-9.0); PROTEIN,URINE 30 (NEGATIVE); UROBILINOGEN,URINE 0.2 mg/dL (0.2-1.0)
[2024-01-18] MEDS ORDERED: Ondansetron 4 MG/2 ML SDV IVPUSH PRN (20:37)
[2024-01-18] MEDS ORDERED: Sodium Chloride 0.9% 10 ML Syringe FLUSH PRN (20:37)
[2024-01-18] MEDS ORDERED: Methylergonovine 0.2 MG Tab PO PRN (20:37)
[2024-01-18] MEDS ORDERED: Naloxone 2 MG/2 ML Syringe IVPUSH PRN (20:37)
[2024-01-18] MEDS ORDERED: Oxytocin 10 Units/1 ML SDV IM PRN (20:37)
[2024-01-18] MEDS ORDERED: Carboprost Tromethamine 250 MCG/1 ML Amp IM PRN ×2 (20:37)
[2024-01-18] MEDS ORDERED: diphenhydrAMINE 50 MG/ML SDV IVPUSH PRN (20:37)
[2024-01-18] MEDS ORDERED: Misoprostol 400 MCG (4 X 100 MCG TAB) RECTAL PRN (20:37)
[2024-01-18] MEDS ORDERED: Acetaminophen/oxyCODONE 325-5 MG Tab PO PRN ×2 (20:37)
[2024-01-18] MEDS ORDERED: Misoprostol 400 MCG (4 X 100 MCG TAB) RECTAL ONE (20:37)
[2024-01-18] MEDS ORDERED: Tranexamic Acid 1,000 MG in Sodium Chloride 0.9% 100 ML IV PRN (20:37)
[2024-01-18] MEDS ORDERED: Methylergonovine 0.2 MG/1 ML Amp IM PRN (20:37)
[2024-01-18] MEDS ORDERED: ePHEDrine 50 MG/ML SDV IVPUSH PRN (20:37)
[2024-01-18] MEDS ORDERED: ceFAZolin 1 GM Vial IVPUSH ONE (20:40)
[2024-01-18] MEDS ORDERED: Oxytocin/Normal Saline 30 UNIT/500 ML BAG IV SCH (20:45)
[2024-01-18] MEDS ORDERED: Lactated Ringers 1,000 ML IV SCH (20:45)
[2024-01-18 20:48] LABS: CREATININE,URINE RAND 169.49 mg/dL (No establ ref range); PROTEIN CREATININE RATIO,URINE 250.2 mg/g (<150.0); PROTEIN,URINE RANDOM 42.4 mg/dL (0.0-11.9)
[2024-01-18 20:55] LABS: ALANINE AMINOTRANSFERASE,ALT 14 U/L (14-59); ASPARTATE AMNIOTRANSFERASE,AST 13 U/L (15-37); BLOOD UREA NITROGEN,BUN 9 mg/dL (7-18); CREATININE 0.74 mg/dL (0.55-1.02); LACTATE DEHYDROGENASE,LDH 134 U/L (81-234); URIC ACID 5.9 mg/dL (2.6-6.0)
[2024-01-18 20:56] LABS: ESTIMATED GFR 107 mL/min (>=60)
[2024-01-18] MEDS ORDERED: Ketorolac 30 MG/ML SDV ONE (21:07)
[2024-01-18] MEDS ORDERED: Dexamethasone 4 MG/ML SDV ONE (21:07)
[2024-01-18] MEDS ORDERED: Succinylcholine 200 MG/10 ML MDV ONE (21:08)
[2024-01-18] MEDS ORDERED: ceFAZolin 2 GM Vial ONE (21:08)
[2024-01-18] MEDS: Oxytocin/Normal Saline 30 UNIT/500 ML BAG IV SCH (22:32)
[2024-01-19] MEDS: Sodium Chloride 0.9% 10 ML Syringe FLUSH SCH (00:59)
[2024-01-19] MEDS: Simethicone 80 MG Tab.Chew PO SCH (01:00)
[2024-01-19] MEDS: Ketorolac 30 MG/ML SDV IVPUSH SCH ×2 (01:01→04:43)
[2024-01-19 05:47] LABS: HEMATOCRIT 29.3 % (37.0-47.0); HEMOGLOBIN 8.6 g/dL (12.0-16.0); MEAN CORPUSCULAR HEMOGLOBIN 22.8 pg (27.0-34.0); MEAN CORPUSCULAR HGB CONC 29.4 g/dL (33.0-35.0); MEAN CORPUSCULAR VOLUME 77.7 fL (80-100); PLATELET COUNT,PLT 300 10^3/uL (150-450); RED BLOOD CELL COUNT 3.77 10^6/uL (4.2-5.4)
[2024-01-19 05:54] LABS: BASOPHILS PERCENT AUTO 0.1 % (0.0-1.0); EOSINOPHILS PERCENT AUTO 0.1 % (1.0-3.0); LYMPHOCYTES PERCENT AUTO 4.9 % (20.5-50.1); MONOCYTES PERCENT AUTO 2.8 % (2-8); NEUTROPHILS PERCENT AUTO 92.1 % (42.2-75.2)
[2024-01-19 06:07] LABS: LYMPHOCYTES PERCENT MAN 4 % (20-50); MONOCYTES PERCENT MAN 4 % (2-8); SEG NEUTROPHILS PERCENT MAN 92 % (42-75)
[2024-01-19] MEDS: Prenatal Multivitamin with Calcium/Folic Acid/Iron Tab PO SCH (08:44)
[2024-01-19] MEDS: Calcium Carbonate 500 MG Tab.Chew PO PRN (13:07)
[2024-01-19 19:54] LABS: HEMATOCRIT 25.1 % (37.0-47.0); HEMOGLOBIN 7.3 g/dL (12.0-16.0); MEAN CORPUSCULAR HEMOGLOBIN 22.7 pg (27.0-34.0); MEAN CORPUSCULAR HGB CONC 29.1 g/dL (33.0-35.0); RED BLOOD CELL COUNT 3.22 10^6/uL (4.2-5.4); WHITE BLOOD CELL COUNT,WBC 12.9 10^3/uL (5.0-10.0)
[2024-01-19 20:11] LABS: A/G RATIO 0.55; ALBUMIN 1.8 g/dL (3.4-5.0); ANION GAP 11.2 mEq/L (7-13); BILIRUBIN TOTAL 0.2 mg/dL (0.2-1.0); CALCIUM 8.6 mg/dL (8.5-10.1); CREATININE 0.88 mg/dL (0.55-1.02); EST CRCL DRUG DOSING (CG) 91.47 mL/min; POTASSIUM,K 4.2 mmol/L (3.5-5.1); PROTEIN TOTAL,TP 5.1 g/dL (6.4-8.2)
[2024-01-19] MEDS: Furosemide 20 MG/2 ML VIAL IVPUSH ONE (20:36)
[2024-01-20] MEDS: Ibuprofen 800 MG Tab PO PRN (03:50)
[2024-01-20] MEDS: Acetaminophen 325 MG Tab PO PRN (09:49)
[2024-01-20] MEDS: Docusate Sodium 100 MG Cap PO PRN (09:49)
[2024-01-21 14:23] VITALS: BP 138/88; PULSE 98
== END 2024-01-21 14:05 | disposition home or self-care (01) | DRG 540 ==
LOC: DL.OBCHECK 19:59 → DL.OB 20:37 → UNDOADMOB 20:42 → DL.OB 20:42 → OBSVTOIN 21:58 → DL.OB 22:27
PROVIDERS: ADMIT Family Medicine; ATTEND Family Medicine
PROC: 10D00Z1 Extraction of Products of Conception, Low, Open Approach (ICD-10-PCS; principal; 2024-01-18 21:30)
DX: O13.4 Gestational [pregnancy-induced] hypertension without significant proteinuria, complicating childbirth (principal); O34.211 Maternal care for low transverse scar from previous cesarean delivery; O90.81 Anemia of the puerperium; D62 Acute posthemorrhagic anemia; Z37.0 Single live birth; Z3A.38 38 weeks gestation of pregnancy; O69.81X0 Labor and delivery complicated by cord around neck, without compression, not applicable or unspecified
CPT/HCPCS: 36415; 80053; 81003; 82565; 82570; 83615; 84156; 84450; 84460; 84520; 84550; 85025; 85027; 86850; 86900; 86901; 86920; 86922; A9270-GY; J0330; J1885; J1940; J2590; J3490; J7120

== ENCOUNTER 2024-03-28 19:15 | Emergency (ER) | payer BC, MEDICAID ==
[2024-03-28 19:49] VITALS: BP 116/81; PULSE 79
== END 2024-03-28 19:57 | disposition home or self-care (01) ==
LOC: DL.ED 19:15
DX: T81.31XA Disruption of external operation (surgical) wound, not elsewhere classified, initial encounter (principal); E66.9 Obesity, unspecified; Z68.41 Body mass index [BMI] 40.0-44.9, adult; Z86.16 Personal history of COVID-19; Z79.899 Other long term (current) drug therapy; Z91.048 Other nonmedicinal substance allergy status
CPT/HCPCS: 99283

== ENCOUNTER 2024-03-29 15:37 | Emergency (ER) | payer BC, MEDICAID ==
[2024-03-29 15:50] VITALS: BP 114/73; PULSE 80
== END 2024-03-29 16:00 | disposition home or self-care (01) ==
LOC: DL.ED 15:37
DX: T81.31XD Disruption of external operation (surgical) wound, not elsewhere classified, subsequent encounter (principal); E66.9 Obesity, unspecified; Z86.16 Personal history of COVID-19; Z91.048 Other nonmedicinal substance allergy status; Z68.41 Body mass index [BMI] 40.0-44.9, adult; X58.XXXD Exposure to other specified factors, subsequent encounter
CPT/HCPCS: 12001; 99283